=== PATIENT | female | born 1955 | race Caucasian/White ===

== ENCOUNTER 2018-08-17 19:24 | Inpatient (IN) | payer OTHER, BC ==
[2018-08-17] MEDS ORDERED: IPRATROPIUM/ALBUTEROL 3 ML DEYVIAL IH ONE (19:36)
[2018-08-17] MEDS ORDERED: NS 1,000 ML IV ONE ×2 (19:36→22:00)
--- NOTE | 2018-08-17 19:44 | EDPHY ---
H & P Time Seen by Provider: 08/17/18 19:28 HPI/ROS: CHIEF COMPLAINT: Chest tightness, shortness of breath, chills HISTORY OF PRESENT ILLNESS: 62-year-old female presents emergency department reporting that she arrived from [place] yesterday and last night developed chest tightness, and chills. This morning she began to feel short of breath. She describes feeling a headache and achy. Unclear if she had a fever but definitely felt chilled. She has taken DayQuil with Tylenol. 5 days ago she developed abdominal pain followed by dysuria was diagnosed with a urinary tract infection. She has been on Macrobid for the past 4 days. Prior to traveling yesterday she felt "off" which she describes as being tired. Occasional cough, no sputum production. No pleuritic pain. Reports chest tightness and shortness of breath. No palpitations, lightheadedness, dizziness , or fainting. Mild back pain. No hematuria. REVIEW OF SYSTEMS: A comprehensive 10 system review of systems was reviewed and is otherwise negative aside from elements mentioned in the history of present illness. PAST MEDICAL HISTORY: Hypothyroidism. Denies a history of PE, LA, coronary artery disease, COPD, asthma, or emphysema. SOCIAL HISTORY: Smoker. Here from [place]. Visiting her family. Reports that previously when she has come to [place] she has not needed oxygen. VITAL SIGNS Reviewed by me. Tachycardic 113, hypoxic to 87%. Blood pressure 154/ 88 , temperature 38.3 degrees. GENERAL: Well-developed, well-nourished, reports feeling chills. No obvious respiratory distress. HEENT: Atraumatic. Eyes: No icterus, no injection. Mouth: moist mucous membranes. No erythema or lesions. Neck: supple with no adenopathy. No meningismus. Negative Kernig's, negative Brudzinski's. LUNGS: Diminished breath sounds throughout, no wheezes rhonchi or rales auscultated. CARDIAC: Tachycardic but regular. No rubs murmurs or gallops. ABDOMEN: Soft, nontender, nondistended, bowel sounds normal. BACK: No CVA tenderness. EXTREMITIES: No trauma. No edema. Range of motion is normal throughout. NEURO: Alert and oriented, grossly nonfocal. SKIN: Warm and dry, no rash. PSYCHIATRIC: Normal mentation, no agitation. Constitutional: Initial Vital Signs Temperature (C) 38.3 C 08/17/18 19:37 Heart Rate 112 H 08/17/18 19:37 Respiratory Rate 20 08/17/18 19:37 Blood Pressure 154/88 H 08/17/18 19:37 O2 Sat (%) 88 L 08/17/18 19:37 O2 Delivery Mode Nasal Cannula O2 (L/minute) 2 Allergies/Adverse Reactions: No Known Allergies Allergy (Unverified 08/17/18 19:35) Home Medications: Medication Instructions Recorded Cranberry Fruit Extract [CRANBERRY] 08/17/18 Ergocalciferol (Vitamin D2) 08/17/18 [Vitamin D2] Levothyroxine [Synthroid 75 mcg 75 mcg PO DAILY06 08/17/18 (*)] Nitrofurantoin Macrobid [Macrobid] 08/17/18 Medical Decision Making - Diagnostics EKG Interpretation: 12-LEAD EKG: Please see the full report in [facility]. My interpretation: Sinus tachycardia, no acute ischemic changes Imaging Results: Imaging Impressions Chest X-Ray 08/17/18 19:36 Impression: Moderate underlying bronchitis and possible pneumonia in the right middle lobe. Interstitial prominence in both lower lobes which could represent pulmonary edema, pneumonitis, or interstitial lung disease. ED Course/Re-evaluation: IV was placed patient received Tylenol and ibuprofen for her fever. IV fluids and DuoNeb ordered. Flu swab was sent and was negative for influenza. EKG demonstrates sinus tachycardia. Troponin is 0.01 at the bedside. Lactic acid 1.4. Chest x-ray: No focal infiltrate. Patchy right sided increased markings. Radiology report is potential right middle lobe pneumonia as well as increased markings both bases. Patient is receiving a L of normal saline. On re-examination after neb, patient is moving better air and has faint crackles [place] [id number]. Chemistries largely unremarkable. Influenza negative. Discussed with the patient the need for admission and hospital given her fever, tachycardia, hypoxemia, elevated white count. Respiratory pathogen panel, BNP, urine microscopic, blood cultures all to be performed at [facility]. Sepsis Evaluation Note: The patient presents to the ED with potential infection identified as pneumonia. The patient did have evidence of sepsis with temperature greater than 38 degree Celsius, heart rate greater than 90, respiratory rate greater than 20, and WBC greater than 12,000. Patient did not have evidence of severe sepsis (lactic acid greater than 2, INR greater than 1.5, platelets less than 100,000, bilirubin greater than 2, creatinine greater than 2, systolic blood pressure less than 90 or MAP less than 65, or the need for intubation or positive pressure ventilation). Differential Diagnosis: Differential diagnosis for the patient's shortness of breath, chest tightness, fever, and headache was considered including but not limited to pulmonary infectious processes, COPD exacerbation, pulmonary emboli, pulmonary edema, cardiac causes, urinary tract infection, viral syndrome, and influenza. Consult/Admit Bed Type: Dr. Judge, [facility] surg - Data Points Laboratory Results: 08/17/18 08/17/18 08/17/18 20:23 20:13 20:11 PT INR APTT POC Sodium POC Potassium POC Chloride POC Total CO2 POC BUN POC Creatinine POC Glucose POC Lactic Acid Imer 1.4 mmol/L mmol/L (0.7-2.1) POC Calcium POC Total Bilirubin 0.6 mg/dL mg/dL (0.1-1.4) POC GGT 20 IU/L IU/L (5-65) POC AST 50 IU/L H IU/L (14-46) POC ALT 42 IU/L IU/L (9-52) POC Alk Phosphatase 79 IU/L IU/L (38-126) POC Troponin I 0.01 ng/mL ng/mL (0.00-0.08) NT-Pro-B Natriuret Pep POC Total Protein 7.2 g/dL g/dL (6.3-8.2) POC Albumin 3.9 g/dL g/dL (3.5-5.0) POC Amylase 50 IU/L IU/L (30-110) 08/17/18 08/17/18 08/17/18 20:10 20:05 20:05 PT 12.7 SEC SEC (12.0-15.0) INR 0.93 (0.83-1.16) APTT Pending POC Sodium 142 mEq/L mEq/L (135-145) POC Potassium 3.6 mEq/L mEq/L (3.3-5.0) POC Chloride 99.0 mEq/L mEq/L (97-110) POC Total CO2 28 mEq/L mEq/L (22-31) POC BUN 12 mg/dL mg/dL (7-23) POC Creatinine 1.1 mg/dL H mg/dL (0.6-1.0) POC Glucose 115 mg/dL H mg/dL (70-100) POC Lactic Acid Imer POC Calcium 9.5 mg/dL mg/dL (8.5-10.4) POC Total Bilirubin POC GGT POC AST POC ALT POC Alk Phosphatase POC Troponin I NT-Pro-B Natriuret Pep Pending POC Total Protein POC Albumin POC Amylase Medications Given: Discontinued Medications Acetaminophen (Tylenol) 1,000 mg PO EDNOW ONE Stop: 08/17/18 19:58 Last Admin: 08/17/18 20:14 Dose: 1,000 mg Albuterol/Ipratropium (Duoneb) 3 ml IH EDNOW ONE Stop: 08/17/18 19:37 Last Admin: 08/17/18 20:11 Dose: 3 ml Sodium Chloride (Ns) 1,000 mls @ 0 mls/hr IV ONCE ONE; Wide Open PRN Reason: Protocol Stop: 08/17/18 19:37 Last Admin: 08/17/18 20:14 Dose: 1,000 mls Ceftriaxone Sodium/Dextrose (Rocephin 1 Gm (Premix)) 50 mls @ 100 mls/hr IV EDNOW ONE PRN Reason: Protocol Stop: 08/17/18 21:23 Last Admin: 08/17/18 21:02 Dose: 50 mls Sodium Chloride (Ns) 1,000 mls @ 0 mls/hr IV EDNOW ONE; Wide Open PRN Reason: Protocol Stop: 08/17/18 22:01 Last Admin: 08/17/18 22:04 Dose: 1,000 mls Ibuprofen (Motrin) 600 mg PO EDNOW ONE Stop: 08/17/18 19:58 Last Admin: 08/17/18 20:13 Dose: 600 mg Point of Care Test Results: CBC CBC Collection Date 08/17/18 CBC Collection Time 20:05 WBC 15.0 RBC 4.79 HGB 15.0 HCT 43.3 PLT 173 Neut # 13.6 Neut 90.4 LYMPH # 0.5 LYMPH 3.5 Other WBC # 0.9 Other WBC 6.1 MCV 90.4 Chemistry 08/17/18 08/17/18 08/17/18 20:23 20:11 20:10 POC Sodium 142 mEq/L mEq/L (135-145) POC Potassium 3.6 mEq/L mEq/L (3.3-5.0) POC Chloride 99.0 mEq/L mEq/L (97-110) POC Total CO2 28 mEq/L mEq/L (22-31) POC BUN 12 mg/dL mg/dL (7-23) POC Creatinine 1.1 mg/dL H mg/dL (0.6-1.0) POC Glucose 115 mg/dL H mg/dL (70-100) POC Calcium 9.5 mg/dL mg/dL (8.5-10.4) POC Total Bilirubin 0.6 mg/dL mg/dL (0.1-1.4) POC GGT 20 IU/L IU/L (5-65) POC AST 50 IU/L H IU/L (14-46) POC ALT 42 IU/L IU/L (9-52) POC Alk Phosphatase 79 IU/L IU/L (38-126) POC Troponin I 0.01 ng/mL ng/mL (0.00-0.08) POC Total Protein 7.2 g/dL g/dL (6.3-8.2) POC Albumin 3.9 g/dL g/dL (3.5-5.0) POC Amylase 50 IU/L IU/L (30-110) Blood Gas/Lactic Acid-Venous 08/17/18 20:13 POC Lactic Acid Imer 1.4 mmol/L mmol/L (0.7-2.1) D-Dimer D-Dimer Collection Date 08/17/18 D-Dimer Collection Time 20:05 D-Dimer (ng/ml) 333 Influenza PCR Flu Nasal Swab Collection Date 08/17/18 Flu Nasal Swab Collection Time 19:38 Influenza A Result Not Detected Influenza B Result Not Detected Urine Dip Collection Date 08/17/18 Collection Time 20:15 Specific [place] (1.002-1.030) 1.015 PH (5.0-7.5) 7.5 Leukocytes (Negative) Trace Nitrites (Negative) Negative Protein (Negative) 1+ Glucose (Negative) Negative Ketones (Negative) Negative Urobilnogen (0.2-1.0 EU) 0.2 Bilirubin (Negative) Negative Blood (Negative) Trace Departure - Departure Disposition: [facility] Clinical Impression: Hypoxia Pneumonia Qualifiers: Pneumonia type: due to unspecified organism Laterality: right Lung location: middle lobe of lung Qualified Code(s): J18.1 - Lobar pneumonia, unspecified organism Fever Qualifiers: Fever type: due to other condition Qualified Code(s): R50.81 - Fever presenting with conditions classified elsewhere Condition: Fair
[2018-08-17] MEDS ORDERED: ACETAMINOPHEN 500 MG TAB PO ONE (19:57)
[2018-08-17] MEDS ORDERED: IBUPROFEN 600 MG TAB PO ONE (19:57)
[2018-08-17 22:34] LABS: INR 0.93 (0.83-1.16); PROTIME(PATIENT) 12.7 SEC (12.0-15.0)
--- NOTE | 2018-08-17 22:38 | CPEKG ---
Test Reason : OPEN Blood Pressure : / mmHG Vent. Rate : 100 BPM Atrial Rate : 100 BPM P-R Int : 134 ms QRS Dur : 096 ms QT Int : 349 ms P-R-T Axes : 039 090 016 degrees QTc Int : 451 ms Sinus tachycardia Borderline right axis deviation Confirmed by Nora Watson ([id number]) on 08/17/2018 10:37:32 PM Referred By: Confirmed By:Nora Watson
[2018-08-17] MEDS ORDERED: ONDANSETRON DISINTEGRATING 4 MG TAB PO PRN (22:50)
[2018-08-17] MEDS ORDERED: ACETAMINOPHEN 325 MG TAB PO PRN (22:50)
[2018-08-17] MEDS ORDERED: HYDROCODONE/APAP 5/325 TAB PO PRN (22:50)
[2018-08-17] MEDS ORDERED: ONDANSETRON 4 MG/2 ML VIAL IVP PRN (22:50)
[2018-08-17] MEDS ORDERED: NS 1,000 ML IV SCH (23:00)
[2018-08-18] MEDS ORDERED: NICOTINE POLACRILEX 2 MG GUM B PRN (00:28)
--- NOTE | 2018-08-18 03:17 | GHP ---
DATE OF ADMISSION: 08/17/2018 PRIMARY CARE PHYSICIAN: In [place]. SOURCE: Patient provides history, appears reliable. EMR was reviewed and case discussed with ED pro vider before transfer. CHIEF COMPLAINT: Shortness of breath, fevers and chills. HISTORY OF PRESENT ILLNESS: This is a very pleasant 62-year-old female with past medical history sig nificant for iatrogenic hypothyroidism, who presents to the emergency department today with complaint s of approximately 24 hours of generalized fatigue, body aches, chills and subjective fever. Patient just flew in from [place] yesterday to visit her family member. She reports that she felt quite fa tigued, had developed some chills in the evening as well as body aches over the course of the evening . Today, the patient states that she was resting in bed and just felt weak all over. Continued to h ave headaches and muscle body aches. She subsequently tried to get up off the couch this afternoon a nd she developed severe nausea with retching, but no vomiting. She also endorsed new onset of shortn ess of breath with bilateral upper chest tightness and pleuritic type chest pain. The patient notes that on Sunday she was diagnosed with a UTI and was started on Macrobid. She reports that she has 2 additional days left of antibiotic therapy. She reports that her symptoms are still mildly present, although significantly improved since she started antibiotics. She still complains of some slight dy suria and has had some intermittent low back pain, but she is not sure if it is more flank versus mus culoskeletal as she had been gardening and been active; she thought she may have pulled a muscle. REVIEW OF SYSTEMS: 10-point review of systems is negative except as noted above. ALLERGIES: No known drug allergies. HOME MEDICATIONS: Patient takes brand name Synthroid 125 mcg daily in the morning. PAST MEDICAL HISTORY: Significant for hypothyroidism and UTI. PAST SURGICAL HISTORY: Significant for tonsillectomy, adenoidectomy, right shoulder arthroscopy and rotator cuff repair, BTL, total thyroidectomy. FAMILY HISTORY: Mother with CHF, . She also had a history of chronic bronchitis when she wa s living. No family history of asthma. SOCIAL HISTORY: Patient lives in [place]. She is currently visiting family here locally. She does smoke approximately half pack per day for many years. She drinks an occasional glass of wine. Noth ing on a daily basis. She does not use any illicit drug use or marijuana. CODE STATUS: Full. PHYSICAL EXAMINATION: VITAL SIGNS: Upon arrival to the emergency department at [facility], blood pressure 154/88, heart rate 112, respiratory rate 20, O2 sat 88% on room air with tempera ture 38.3. Vitals currently available: Blood pressure 103/54, heart rate is 80, respiratory rate 16 , O2 saturation 93% on 2 L by nasal cannula, temperature 36.8. GENERAL: No acute distress. Marie t adult female is lying quietly in bed. She does appear acutely ill, fatigued, but nontoxic. She is pleasant and cooperative. HEAD: Normocephalic, atraumatic. EYES: Extraocular muscles are grossly intact. Pupils equal, round, reactive to light bilaterally and symmetric. No scleral icterus or co njunctival injection. ENT: Mucous membranes appear slightly dry and tacky. Minimal oropharyngeal e rythema. No exudates appreciated. NECK: Supple. Trachea midline. CV: Regular rate and rhythm in the 80s. No murmurs, rubs, or gallops appreciated. RESPIRATORY: Patient with unlabored breathing. She is resting comfortably, lying flat. She does not have any increased work of breathing. She do es have crackles present right middle lower lung epps. No wheezes or rhonchi appreciated. This do es not clear with coughing. ABDOMEN: Positive bowel sounds. Soft, nontender to palpation. No rebo und, guarding, or masses appreciated. : No suprapubic tenderness to palpation. No Olea catheter in place. No CVA tenderness. EXTREMITIES: Patient with some trace pretibial edema. 2+ pedal puls es. Moves all extremities. Strength grossly intact. Able to sit up independently. NEURO: Grossly nonfocal. Moves all extremities as noted above. Grossly nonfocal exam. No facial drooping. PSYCH : Thought process, content and questions are all appropriate. Patient is pleasant, cooperative. LABORATORY STUDIES: Point of care testing reviewed in the ED provider note. WBC 15.0, H and H is 15 .0, 43.3, platelet count is 173, neutrophil count 13.6, MCV 90.4. Sodium is 142, potassium 3.6, chlo ride 99, CO2 is 28, BUN is 12, creatinine is 1.1, glucose 115, calcium 9.5, total bilirubin 0.6, ALT is 42, AST 50, alkaline phosphatase is 79. Troponin is negative. Lactic acid is 1.4. Chest x-ray: Image and report was reviewed myself showing moderate underlying bronchitis and possibl e pneumonia right middle lobe. Interstitial prominence of both lower lobes which could represent pul monary edema, pneumonitis or interstitial lung disease. Mild degenerative changes in thoracic spine. EKG was reviewed myself, showing sinus tachycardia in the 100s. Borderline right axis deviation. QT c is 451. No acute ST changes. Slight dip in the T-wave of V2. Remainder is otherwise normal. ASSESSMENT AND PLAN: Pleasant 62-year-old female presents visiting from [place] with complaints of 24 hours of body aches, fevers, chills, and now shortness of breath and cough. 1. Right middle lobe pneumonia. The patient has been started on Rocephin. Anticipate this should b e adequate coverage for at this time. The patient has required some supplemental oxygen, but is alre jenni feeling improvement. A respiratory PCR is pending as well as blood cultures. 2. Sepsis criteria without organ dysfunction. The patient's fever and tachycardia have improved. H er lactate is within normal limits. The patient did have some soft blood pressures that did respond appropriately to an IV fluid bolus prior to arrival from [facility]. 3. Hypoxia, improved with 2 L of oxygen. Incentive spirometry has been ordered and will anticipate exertional pulse ox in the morning to see if there is any improvement. The patient may require some home oxygen. 4. History of urinary tract infection. Patient reports she had 2 additional days to complete her Ma crobid dosing for 7 day total. She had some leuks remnant on her urinalysis at this time, but this c ould be contaminant. No other evidence of infectious source. Nitrites are negative, blood negative. Urine culture is pending, however, as well as blood cultures. 5. Acute kidney injury. Patient's creatinine is slightly elevated. Patient does appear to be dehyd rated. It is likely prerenal in nature. Intravenous fluid bolus was received prior to arrival and w ill continue with intravenous fluids overnight. Will encourage patient to orally hydrate once this a dditional 1 L bag is completed. Also, will plan to repeat basic metabolic panel in the morning. 6. Hypothyroidism, iatrogenic, status post thyroidectomy. Levothyroxine has been ordered 125 mcg da bonifacio in the morning. 7. Fluid, electrolyte, nutrition. IV fluids as noted above. Diet as tolerated. Advance and encour age oral hydration as noted. Electrolyte monitoring replacement if needed. 8. Prophylaxis. Sequential compression devices. Lovenox if patient should stay additional day. Ot herwise, encourage ambulation. 9. Code status is full. DISPOSITION: Patient admitted to observation status on the med surg floor pending reassessment in morning, as well as laboratory studies and patient's O2 saturation. /[id number]/MODL
[2018-08-18 05:42] LABS: PLATELET COUNT 155 10^3/uL (150-400)
[2018-08-18] MEDS ORDERED: LEVOTHYROXINE 125 MCG TAB PO SCH (06:00)
[2018-08-18] MEDS: ENOXAPARIN 40 MG/0.4 ML SYR SC SCH (08:29)
--- NOTE | 2018-08-18 12:04 | ASMTCMCOM ---
CM Note CM Note Notes: Case Management Chart Review for Discharge Support: Patient is a 35 year old female admitted for right middle lobe pneumonia. She is in town visiting daughter from [place]. CM spoke with floor RN, patient will likely discharge independent when medically stable, date TBD. CM to follow. Date Signed: 08/18/2018 12:04 PM Electronically Signed By:Arianna Walker
[2018-08-18] MEDS: LEVOTHYROXINE 125 MCG TAB PO SCH (12:32)
--- NOTE | 2018-08-18 15:08 | PDMN ---
Medical Necessity Medical necessity: [facility] [id number] CAP: 62 yo w/ RML pneumonia, sepsis criteria w/o organ dysfunction, hypoxia, acute kidney injury. Initially OBS but 24hr but today still some hypotension, sat 89% on RA, cont on IV fluids and IV antibx, BC pending, WBC still elevated, another MN required for ongoing IV antibx, monitoring and tx. Hx hypothyroidism w/ thyroidectomy. Change to IP status 08/18/18 @1352 per MD order
--- NOTE | 2018-08-18 16:44 | HOSPPROG ---
Hospitalist Progress Note Assessment/Plan: * Pneumonia -IV ceftriaxone + azithro * Sepsis -monitor BC * Tobacco dependence -patch if withdrawal * ARF - improved with IVF Subjective: Still feels terrible, maybe a little better. Not ready for home Objective: Vital Signs Temp Pulse Resp BP Pulse Ox 36.6 C 73 16 101/66 91 L 08/18/18 15:21 10 15:21 08/18/18 15:21 08/18/18 15:21 08/18/18 15:21 PT 12.7 SEC (12.0-15.0) 08/17/18 20:05 INR 0.93 (0.83-1.16) 08/17/18 20:05 EKG viewed, my personal interpretation is - NSR, no ischemia CXR - RML pneumonia Laboratory Tests 08/18/18 05:15 WBC 11.03 H Hct 36.7 L Plt Count 155 - Physical Exam Constitutional: no apparent distress, appears nourished, not in pain Cardiovascular: regular rate and rhythym, no murmur, rub, or gallop Respiratory: no respiratory distress, no rales or rhonchi, clear to auscultation Gastrointestinal: normoactive bowel sounds, soft, non-tender abdomen, no palpable masses Skin: no rashes or abrasions, no fluctuance, no induration Neurologic: AAOx3, sensation intact bilaterally Psychiatric: interacting appropriately, not anxious, not encephalopathic, thought process linear ICD10 Worksheet Patient Problems: Problems Problem Status Onset Pneumonia Acute Hypoxia Acute Fever Acute
[2018-08-18] MEDS: AZITHROMYCIN 250 MG TAB PO SCH (17:00)
[2018-08-18] MEDS: diphenhydrAMINE 25 MG CAP PO PRN ×2 (17:52→23:56)
[2018-08-19 05:06] LABS: PLATELET COUNT 170 10^3/uL (150-400)
[2018-08-19] MEDS: diphenhydrAMINE 25 MG CAP PO PRN (05:59)
[2018-08-19] MEDS: LEVOTHYROXINE 125 MCG TAB PO SCH (05:59)
[2018-08-19 07:38] VITALS: BP 115/62
[2018-08-19] MEDS: AZITHROMYCIN 250 MG TAB PO SCH (09:17)
[2018-08-19] MEDS: ENOXAPARIN 40 MG/0.4 ML SYR SC SCH (09:17)
[2018-08-19] MEDS ORDERED: FUROSEMIDE 20 MG/2 ML VIAL IVP ONE (09:35)
--- NOTE | 2018-08-19 09:57 | ASMTLACE ---
LACE Length of stay for Answers: 1 day current admission Acuity / Level of Answers: Yes Care: Did the patient have an inpatient admission? Comorbidities - select Answers: Other Notes: Hypothyroidism all that apply # of Emergency department Answers: 1-2 visits in the last 6 months Score: 6 Date Signed: 08/19/2018 09:56 AM Electronically Signed By:Ev Panda RN
--- NOTE | 2018-08-19 09:58 | ASMTDCNOTE ---
Case Management Discharge Discharge Order Complete? Answers: Yes Patient to Obtain Answers: Independently Medications Transportation Arranged Answers: Family/Friends Discharge Comments Notes: Patient stable for discharge today. Here visiting from [place]. Will d/c home independently, no CM needs identified. Date Signed: 08/19/2018 09:58 AM Electronically Signed By:Ev Panda RN
--- NOTE | 2018-08-19 17:54 | GDS ---
DISCHARGE DIAGNOSES: 1. Community-acquired pneumonia. 2. Sepsis. 3. Tobacco dependence. 4. Acute renal failure due to dehydration. HISTORY: The patient is a 62-year-old female visiting from [place]. She came in with sepsis criter ia and pulmonary source. She was treated for community-acquired pneumonia with IV ceftriaxone and IV azithromycin. She did develop a rash after her first dose of IV ceftriaxone. She knows that she do es very well with amoxicillin in the past, so she requested that instead. She will therefore dischar ge on oral amoxicillin plus azithromycin to complete a 7-day course of therapy. Sepsis criteria reso lved including lack of fever, tachycardia, or leukocytosis at discharge. She was weaned to room air. DISCHARGE MEDICATIONS: Please see computer record for full detailed list. New medications: 1. Augmentin 875 mg p.o. twice daily x7 days. 2. Azithromycin 500 mg p.o. daily for 7 days. ADDITIONAL DISCHARGE INSTRUCTIONS: Follow up with primary care upon return back to [place]. Greater than 30 minutes' time spent arranging this discharge. Patient seen and examined by me on day of discharge. /[id number]/MODL
== END 2018-08-19 11:44 | disposition home or self-care (01) | DRG 871 ==
LOC: CED 19:24 → CEDHOLD 21:27 → F3E 23:31 → OBSVTOIN 08-18 13:52
PROVIDERS: ADMIT Internal Medicine; ATTEND Internal Medicine
DX: A41.9 Sepsis, unspecified organism (principal); J18.9 Pneumonia, unspecified organism; N17.9 Acute kidney failure, unspecified; E86.0 Dehydration; E03.9 Hypothyroidism, unspecified; N39.0 Urinary tract infection, site not specified; F17.210 Nicotine dependence, cigarettes, uncomplicated
CPT/HCPCS: 71046-PO; 80048-PO; 80076-PO; 82150-PO; 83605-PO; 84484-PO; 96365; G0378; J0696; J1940